=== PATIENT | male | born 1975 | race Caucasian/White ===

== ENCOUNTER 2024-02-15 21:37 | Emergency (ER) | payer OTHER, SELFPAY ==
[2024-02-15 21:37] VITALS: BMI 31.0
[2024-02-15 21:38] VITALS: BP 175/96
[2024-02-15 21:40] VITALS: BP 175/96
[2024-02-15 21:54] LABS: % Basophils 0.4 % (0-2); % Eosinophils 0.7 % (0-6); % Immature Granulocytes 0.6 % (0-0.5); % Lymphocytes 17.2 % (20.5-51.1); % Monocytes 2.6 % (1.7-9.3); % Neutrophils 78.5 % (42.2-75.2); Absolute Eosinophils 0.1 10^3/uL (0-0.7); Absolute Lymphocytes 1.2 10^3/uL (1.2-3.4); Absolute Monocytes 0.2 10^3/uL (0.1-0.6); Absolute Neutrophils 5.3 10^3/uL (1.4-6.5); Hematocrit 39.3 % (39.0-52.0); Mean Corp Hgb Conc. 35.6 g/dL (33.0-37.0); Mean Corpuscular Hgb 29.2 pg (27.0-31.0); Mean Corpuscular Volume 81.9 fL (80.0-94.0); Mean Platelet Volume 10.4 fL (7.4-10.4); Nucleated Red Blood Cells % 0 % (-); Platelet Count 185 10^3/uL (130-400); Red Cell Dist. Width 12.7 % (11.5-14.5); White Blood Cell Count 6.8 10^3/uL (4.8-10.8)
--- NOTE | 2024-02-15 22:07 | ED.GENMED ---
History of Present Illness
General
Chief Complaint: Back Pain
Time Seen by Provider: 02/15/24 22:02
Travel History
Have you had any contact with someone who has COVID-19?: No
Do you have any symptoms of coronavirus? Fever > 100 degrees, chills, cough, shortness of breath, sore throat, loss of taste or smell, muscle aches, or headache?: No
History of Present Illness
History of Present Illness:
48-year-old male with history of hypertension, hyperlipidemia, and obstructive sleep apnea presents to the emergency department for evaluation of bilateral lower back spasms that began this morning. He states he was attempting to attach his trailer
hitch to his truck, states he felt mild pain when this struck, throughout the day gradually worsened. He went to walk up the stairs this afternoon and felt severe onset of back pain and he was unable to walk. He denies any lower extremity
radiculopathy or paresthesias. Denies any incontinence of bowels or bladder. No fevers or chills. Denies any recent falls. He did take acetaminophen without relief. Received 100 mcg of IV fentanyl and route by EMS with no significant
improvement.
Past History
Past History
ED Past Medical History: Other (Herniated disc)
ED Past Surgical History: None
Social History
Tobacco: Non-smoker
Review of Systems
Review of Systems
Allergies reviewed?: Yes
All Other Systems: ROS reviewed and negative except as documented in HPI and ROS
Phy Exam
Physical Exam
Physical Exam:
GEN: Well appearing, NAD, WDWN
HEENT: Oral mucosa moist, no scleral icterus
Cardiac: Regular rate
Lung: No respiratory distress, no tachypnea
MSK: No gross deformity or injuries. Unable to examine patient's lumbar spine initially due to severe pain, patient insisting on lying supine
Skin: Good color, no pallor or jaundice, no rashes
Neuro: AO x3. Intact EHL strength bilaterally, patellar reflexes 2+ bilaterally, normal lower extremity sensation
Psych: Calm, cooperative
Course
Orders/Labs/Results
Orders:
Orders
02/15/24 21:48
Complete Blood Count/With Diff Urgent
Comprehensive Metabolic Panel Urgent
02/15/24 22:06
Ketorolac [Toradol] 15 mg IV NOW STA
diazePAM [Valium Injection] 2 mg IV NOW STA
02/15/24 23:05
diazePAM [Valium Injection] 2 mg IV NOW STA
02/15/24 23:56
Diazepam [Valium] 2 mg PO NOW STA
Abnormal Lab Results
02/15/24
21:48
Immature Gran % 0.6 H %
(0-0.5)
Neutrophils % 78.5 H %
(42.2-75.2)
Lymphocytes % 17.2 L %
(20.5-51.1)
BUN 21 H mg/dl
(9-20)
Glucose 153 H mg/dl
(70-99)
ALT 69 H U/L
(0-50)
02/15/24 21:48
02/15/24 21:48
Vital Signs
Initial and Last Documented VS:
Initial Vital Signs
Temp Pulse Resp BP Pulse Ox
98 F 86 20 175/96 95
02/15/24 21:38 02/15/24 21:38 02/15/24 21:38 02/15/24 21:38 02/15/24 21:38
Last Documented Vital Signs
Temp Pulse Resp BP Pulse Ox
98 F 86 20 162/90 95
02/15/24 21:38 02/15/24 21:38 02/15/24 21:38 02/15/24 23:00 02/15/24 23:45
MDM/Problems Addressed
MDM/Problems Addressed:
48-year-old male presents via EMS due to acute back spasms. He has no lower extremity radiculopathy or paresthesias concerning for spinal emergency. He was treated supportively with muscle relaxants and NSAIDs with gradual improvement in symptoms.
No direct trauma, no indication for imaging. Patient able to ambulate at time of discharge, will treat with corticosteroids and muscle relaxants, recommend outpatient primary care follow-up.
*Critical Care Note
Total Time (30-74mins, 75-104mins- exclusive of procedures): Not Applicable
ED Attending Note
-
Portions of this chart may have been created with voice recognition software.� Occasional wrong word or��sound alike� substitutions may have occurred due to the inherent limitations of voice recognition software.
Discharge Plan
Departure
Patient Disposition: Home (Routine Discharge)
Date of Disposition: 02/15/24
Time of Disposition: 23:56
Patient with high blood pressure during this ER visit?: No
Discharge Problem:
Back muscle spasm
Instructions: Low Back Pain (DC)
Prescriptions:
New
diazepam 5 mg tablet
5 mg PO TID PRN (Reason: muscle spasm) Qty: 12 0RF
methylprednisolone [Medrol (Scooby)] 4 mg tablets,dose pack
See Rx Instructions .ROUTE .COMPLEX Qty: 21 0RF
Rx Instructions:
orally per package directions
Referrals:
Adam Minor DO [Family Provider] -
Activity Restrictions/Additional Instructions:
Follow up with your primary doctor in 3-5 days
Interventions
Interventions:
*Risk Screen - Suicide Last Done: 02/15/24 21:44
*General Assessment Last Done: 02/15/24 21:42
*Neglect/Abuse Screening Last Done: 02/15/24 21:44
*ED COVID-19 Vaccine History Last Done: 02/15/24 21:42
ED-Musculoskeletal Assessment Last Done: 02/15/24 21:45
Discharge Date and Time
Print Language: MALAWIAN
[2024-02-15] MEDS: TORADOL 15 MG IV (22:13)
[2024-02-15] MEDS: VALIUM INJECTION 2 MG IV ×2 (22:13→23:13)
[2024-02-15 22:14] LABS: ALT (SGPT) 69 U/L (0-50); AST (SGOT) 46 U/L (17-59); Albumin 4.5 g/dl (3.5-5.0); Alkaline Phosphatase 104 U/L (38-126); Blood Urea Nitrogen 21 mg/dl (9-20); Calcium 9.6 mg/dl (8.4-10.2); Carbon Dioxide 24 mmol/L (22-30); Chloride 105 mmol/L (98-107); Estimated Creatinine Clearance > 125 ml/min; Glucose 153 mg/dl (70-99); Potassium 4.5 mmol/L (3.5-5.1); Sodium 135 mmol/L (135-145); Total Bilirubin 0.7 mg/dl (0.2-1.3); Total Protein 7.4 g/dl (6.3-8.2); eGFR > 60.00
[2024-02-15 23:00] VITALS: BP 162/90
[2024-02-16] MEDS: VALIUM 2 MG PO
== END 2024-02-16 00:24 | disposition home or self-care (01) ==
LOC: EMR 21:37
PROVIDERS: EMERGENCY PHYSICIAN Emergency Medicine; FAMILY PHYSICIAN Family Medicine
DX: M62.838 Other muscle spasm (principal); I10 Essential (primary) hypertension; E78.5 Hyperlipidemia, unspecified; G47.33 Obstructive sleep apnea (adult) (pediatric)
CPT/HCPCS: 99284; 96374; 96375; 96376; 80053; 85025